=== PATIENT | female | born 2000 | race American Indian/Alaskan Native ===

== ENCOUNTER 2021-08-26 10:47 | Emergency (ER) | payer OTHER ==
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
[2021-08-26 15:04] VITALS: BP 132/85
== END 2021-08-26 15:05 | disposition home or self-care (01) ==
LOC: ED 10:47
DX: R07.89 Other chest pain (principal); M54.2 Cervicalgia; Z88.1 Allergy status to other antibiotic agents; Z79.899 Other long term (current) drug therapy; V87.7XXA Person injured in collision between other specified motor vehicles (traffic), initial encounter; Y93.89 Activity, other specified; Y92.488 Other paved roadways as the place of occurrence of the external cause; Y99.8 Other external cause status
CPT/HCPCS: 99282